=== PATIENT | female | born 1980 | race Hispanic/Latino ===

== ENCOUNTER 2019-10-16 05:52 | Observation (INO) | payer BC, OTHER ==
--- OUTSIDE RECORDS SUMMARY | 2019-10-16 05:54 | XMS REPORT ---
:1980 Author Organization eClinicalWorks Care Team Providers Name Role Phone Jerald [facility] Provider Role Unavailable Allergies, Adverse Reactions, Alerts Substance Reaction Event Type N.K.D.A. Info Not Available Non Drug Allergy Problems Problem Type Condition Code Onset Dates Condition Status Problem GERD without esophagitis K21.9 Active Problem Mixed hyperlipidemia E78.2 Active Assessment Adult BMI 26.0-26.9 kg/sq m Z68.26 Active Assessment Mixed hyperlipidemia E78.2 Active Assessment GERD without esophagitis K21.9 Active Medications Medication Code Code Instructions Start End Status Dosage System Date Date Omeprazole [facility] 70908951147 40 MG Orally Aug 08, Active 1 capsule Once a day 2018 30 minutes before morning meal Sprintec 28 [facility] 73720713633 0.25-35 MG-MCG Active 1 tablet Orally Once a day Multi Vitamin [facility] [id number] - Orally Once a Active 1 tablet day Results No Known Results Summary Purpose eClinicalWorks Submission
--- OUTSIDE RECORDS SUMMARY | 2019-10-16 05:54 | XMS REPORT ---
:1980 Author Organization eClinicalWorks Care Team Providers Name Role Phone Jerald [facility] Provider Role Unavailable Allergies, Adverse Reactions, Alerts Substance Reaction Event Type N.K.D.A. Info Not Available Non Drug Allergy Problems Problem Type Condition Code Onset Dates Condition Status Assessment Well adult on routine health check Z00.00 Active Problem GERD without esophagitis K21.9 Active Assessment GERD without esophagitis K21.9 Active Medications Medication Code Code Instructions Start End Status Dosage System Date Date Omeprazole [facility] 57171662355 40 MG Orally Aug 08, Active 1 capsule Once a day 2018 30 minutes before morning meal Sprintec 28 [facility] [id number] 0.25-35 MG-MCG Active 1 tablet Orally Once a day Multi Vitamin [facility] [id number] - Orally Once a Active 1 tablet day Results No Known Results Summary Purpose eClinicalWorks Submission
[2019-10-16 06:28] LABS: Absolute Lymphocytes (CBC) 1.5 K/uL (0.7-4.9); Basophils % 0.4 % (0-1.3); Hematocrit 40.5 % (36.0-45.0); Lymphocytes % 9.5 % (15.3-44.8); MPV 8.9 fL (7.6-11.3); RBC Red Blood Cell Count 4.37 M/uL (3.86-4.86)
[2019-10-16] MEDS ORDERED: PANTOPRAZOLE 40 MG INJ ONE (06:35)
[2019-10-16] MEDS ORDERED: MORPHINE 4 MG/ML SYR ONE (06:35)
[2019-10-16] MEDS ORDERED: ONDANSETRON 4 MG/2 ML VIAL ONE (06:35)
[2019-10-16 06:50] LABS: ALT/SGPT 19 U/L (12-78); AST/SGOT 18 U/L (15-37); Albumin 3.7 g/dL (3.4-5.0); Alkaline Phosphatase 60 U/L (45-117); BUN Blood Urea Nitrogen 9 mg/dL (7-18); Bicarbonate 23 mmol/L (21-32); Bilirubin Direct 0.1 mg/dL (0-0.2); Bilirubin Total 0.5 mg/dL (0.2-1.0); Glucose Level 122 mg/dL (74-106); Lipase 114 U/L (73-393); Potassium 3.8 mmol/L (3.5-5.1); Protein, Total 7.4 g/dL (6.4-8.2); Sodium Level 137 mmol/L (136-145); Troponin (Emerg Dept Use Only) < 0.02 ng/mL (0.0-0.045)
[2019-10-16 07:26] LABS: Urine Blood 1+ (NEG); Urine Glucose NEGATIVE (NEG); Urine Protein NEGATIVE (NEG)
--- NOTE | 2019-10-16 08:29 | RAD REPORT ---
EXAM DESCRIPTION: US - Abdomen Exam Limited - 10/16/2019 8:08 am CLINICAL HISTORY: R/O GB;Abd pain COMPARISON: No comparisons FINDINGS: Multiple mobile gallstones are identified up to 2 cm in size. At least 1 moderate-sized ga llstone remains near the neck of the gallbladder. There is no wall thickening or pericholecystic flui d. No common duct stone or biliary tree dilatation identified. IMPRESSION: Multi stone cholelithiasis. No additional findings to indicate acute cholecystitis.
--- NOTE | 2019-10-16 08:53 | EDPHYS ---
Physician Documentation [facility] Name: Fatoumata Canas Age: 38 yrs Sex: Female : 1980 Arrival Date: 10/16/2019 Time: 05:56 Bed 4 Private MD: ED Physician Toni Napoles HPI: 10/16 06:13 This 38 yrs old Female presents to ER via Ambulatory with complaints of jr8 Abdominal pain/Back pain. 06:15 The patient presents with abdominal pain in the epigastric area, in the upper abdomen. jr8 Onset: The symptoms/episode began/occurred acutely, last night. The symptoms radiate to back. Associated signs and symptoms: Pertinent positives: nausea and vomiting. The symptoms are described as stabbing. Modifying factors: The symptoms are alleviated by nothing, the symptoms are aggravated by nothing. Severity of pain: At its worst the pain was moderate in the emergency department the pain is unchanged. The patient has experienced similar episodes in the past, a few times. The patient has not recently seen a physician. Stated that her PCP has put her on omeprazole at one point but has never seen GI for problem. Stated that it normally goes away in a couple of hours but that this time it is not. 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 - Coronavirus screen:: The patient has NOT traveled to [place] in the past 14 days. Proceed with normal triage process as indicated. - Social history:: Smoking status: Patient denies any tobacco usage or history of. - Ebola Screening: : No symptoms or risks identified at this time. ROS: 06:15 Eyes: Negative for injury, pain, redness, and discharge, ENT: Negative for injury, jr8 pain, and discharge, Neck: Negative for injury, pain, and swelling, Cardiovascular: Negative for chest pain, palpitations, and edema, Respiratory: Negative for shortness of breath, cough, wheezing, and pleuritic chest pain, Back: Negative for injury and pain, MS/Extremity: Negative for injury and deformity, Skin: Negative for injury, rash, and discoloration, Neuro: Negative for headache, weakness, numbness, tingling, and seizure. 06:15 Abdomen/GI: Positive for abdominal pain, nausea and vomiting, Negative for diarrhea, constipation, abdominal cramps, abdominal distension. Exam: 06:15 Eyes: Pupils equal round and reactive to light, extra-ocular motions intact. Lids and jr8 lashes normal. Conjunctiva and sclera are non-icteric and not injected. Cornea within normal limits. Periorbital areas with no swelling, redness, or edema. ENT: Nares patent. No nasal discharge, no septal abnormalities noted. Tympanic membranes are normal and external auditory canals are clear. Oropharynx with no redness, swelling, or masses, exudates, or evidence of obstruction, uvula midline. Mucous membranes moist. Neck: Trachea midline, no thyromegaly or masses palpated, and no cervical lymphadenopathy. Supple, full range of motion without nuchal rigidity, or vertebral point tenderness. No Meningismus. Chest/axilla: Normal chest wall appearance and motion. Nontender with no deformity. No lesions are appreciated. Cardiovascular: Regular rate and rhythm with a normal S1 and S2. No gallops, murmurs, or rubs. Normal PMI, no JVD. No pulse deficits. Respiratory: Lungs have equal breath sounds bilaterally, clear to auscultation and percussion. No rales, rhonchi or wheezes noted. No increased work of breathing, no retractions or nasal flaring. Back: No spinal tenderness. No costovertebral tenderness. Full range of motion. Skin: Warm, dry with normal turgor. Normal color with no rashes, no lesions, and no evidence of cellulitis. MS/ Extremity: Pulses equal, no cyanosis. Neurovascular intact. Full, normal range of motion. Neuro: Awake and alert, GCS 15, oriented to person, place, time, and situation. Cranial nerves II-XII grossly intact. Motor strength 5/5 in all extremities. Sensory grossly intact. Cerebellar exam normal. Normal gait. 06:15 Abdomen/GI: Inspection: abdomen appears normal, Bowel sounds: active, all quadrants, Palpation: soft, in all quadrants, moderate abdominal tenderness, in the epigastric area and right upper quadrant, mass, is not appreciated, rebound tenderness, is not appreciated, voluntary guarding, is not appreciated, involuntary guarding, is not appreciated, no appreciated organomegaly, Indicators: McBurney's point is not tender, Garcia's sign is negative, Rovsing's sign is negative, Liver: tenderness, is not appreciated. 06:50 ECG was reviewed by the Attending Physician. jr8 Vital Signs: 06:09 BP 130 / 85; Pulse 77; Resp 24 S; Temp 98.2(O); Pulse Ox 100% on R/A; Weight 68.04 kg bb (R); Height 5 ft. 4 in. (162.56 cm) (R); Pain 10/10; 07:12 BP 123 / 68; Pulse 66; Resp 14; Temp 98.; Pulse Ox 99% on R/A; Pain 2/10; ch 08:07 BP 118 / 80; Pulse 71; Resp 18; Pulse Ox 100% on R/A; Pain 0/10; em 09:08 BP 119 / 77; Pulse 76; Resp 16; Temp 98.1(O); Pulse Ox 99% on R/A; Pain 2/10; ch 09:44 BP 117 / 72; Pulse 68; Resp 14; Temp 98.1; Pulse Ox 100% on R/A; Pain 2/10; ch 06:09 Body Mass Index 25.75 (68.04 kg, 162.56 cm) MDM: 06:02 Patient medically screened. jr8 06:18 Differential diagnosis: cholecystitis, Cholelithiasis, diverticulitis, gastritis, jr8 gastroesophageal reflux disease, Hepatitis, Irritable bowel syndrome, myocardia ischemia or infarction, non-specific abd pain, pancreatitis, Peptic Ulcer Disease, Perf. Duodenal Ulcer, Perf. Gastric Ulcer. 08:40 Data reviewed: vital signs, nurses notes, lab test result(s), EKG, radiologic studies, jr8 plain films, ultrasound, and as a result, I will admit patient. Data interpreted: Pulse oximetry: on room air is 100 %. Interpretation: normal. Counseling: I had a detailed discussion with the patient and/or guardian regarding: the historical points, exam findings, and any diagnostic results supporting the discharge/admit diagnosis, lab results, radiology results, the need for further work-up and treatment in the hospital, to return to the emergency department if symptoms worsen or persist or if there are any questions or concerns that arise at home. Response to treatment: the patient's symptoms have markedly improved after treatment. 08:46 ED course: Patient doing better. No pericholecystic fluid or GB wall inflammation [facility] noted. NO CBD dilation. Called Dr. Luna. Wants to do surgery today instead of f/u in outpatient office. Will admit to [facility] . 10/16 06:07 Order name: Basic Metabolic Panel [facility] 10/16 06:07 Order name: CBC with Diff [facility] 10/16 06:07 Order name: Creatinine for Radiology [facility] 10/16 06:07 Order name: Hepatic Function [facility] 10/16 06:07 Order name: Lipase [facility] 10/16 06:07 Order name: Troponin (emerg Dept Use Only) [facility] 10/16 06:34 Order name: CBC with Automated Diff; Complete Time: 09:41 EDMS 10/16 06:45 Order name: Creatinine (Radiology Only); Complete Time: 06:46 EDMS 10/16 06:51 Order name: Basic Metabolic Panel; Complete Time: 06:51 EDMS 10/16 06:51 Order name: Liver (Hepatic) Function; Complete Time: 06:51 EDMS 10/16 06:51 Order name: Troponin (Emerg Dept Use Only); Complete Time: 06:51 EDMS 10/16 06:51 Order name: Lipase; Complete Time: 06:51 EDMS 10/16 06:56 Order name: Urine Dipstick--Ancillary (enter results) 10/16 06:56 Order name: Urine --Ancillary (enter results) 10/16 06:07 Order name: IV Saline Lock; Complete Time: 06:19 [facility] 10/16 06:07 Order name: Labs collected and sent; Complete Time: 06:19 [facility] 10/16 06:07 Order name: Urine Test (obtain specimen); Complete Time: 07:12 [facility] 10/16 06:07 Order name: Urine Dipstick-Ancillary (obtain specimen); Complete Time: 07:12 [facility] 10/16 06:07 Order name: XRAY Chest (1 view) [facility] 10/16 06:12 Order name: US Abdomen Limited [facility] 10/16 07:26 Order name: Urine --Ancillary; Complete Time: 07:48 EDMS 10/16 07:26 Order name: Urine Dipstick-Ancillary; Complete Time: 07:48 EDMS 10/16 08:30 Order name: US; Complete Time: 08:42 EDMS 10/16 09:13 Order name: RAD; Complete Time: 09:13 EDMS 16 09:32 Order name: CBC Smear Scan; Complete Time: 09:41 EDMS 16 06:07 Order name: EKG - Nurse/Tech; Complete Time: 06:19 jr8 EC:50 Rate is 76 beats/min. Rhythm is regular, Normal Sinus Rhythm. QRS [place] is Normal. AR jr8 interval is normal at 132 msec. QRS interval is normal at 82 msec. QT interval is normal at 463 msec. No Q waves. T waves are Normal. No ST changes noted. Clinical impression: Normal ECG and No evidence of ischemia. Interpreted by me. Reviewed by me. Administered Medications: 03:34 Drug: ProTONIX 40 mg Route: IVP; Site: right antecubital; jb4 07:11 Follow up: Response: No adverse reaction; Marked relief of symptoms ch 06:30 Drug: Zofran 4 mg Route: IVP; Site: right antecubital; jb4 07:11 Follow up: Response: No adverse reaction; Marked relief of symptoms ch 06:36 Drug: morphine 4 mg {Note: Rass score 0.} Route: IVP; Site: right antecubital; jb4 07:11 Follow up: Response: No adverse reaction; Marked relief of symptoms ch 09:07 Drug: Mefoxin 1 grams {Note: per pharmacy, mefoxin is IV push slow over 5 min. ch administered per pharmacy protocol over 5 min, to R aC. pt tolerated well.} Route: IVPB; Infused Over: 30 mins; Site: right antecubital; 09:15 Follow up: IV Status: Completed infusion; IV Intake: 10ml ch 09:07 Drug: Flagyl 500 mg Volume: 100 ml; Route: IVPB; Rate: 200 ml/hr; Infused Over: 30 ch mins; Site: right antecubital; 09:45 Follow up: IV Status: Completed infusion; IV Intake: 100ml ch Disposition: 10/17 07:48 Co-signature as Attending Physician, Toni Napoles MD I agree with the assessment and kdr plan of care. Disposition: 10/16/19 08:51 Hospitalization ordered by Yosef Luna for Observation. Preliminary diagnosis is Cholelithiasis. - Bed requested for Telemetry/MedSurg (observation). - Status is Observation. ch - Condition is Stable. - Problem is new. - Symptoms have improved. Signatures: Dispatcher [employer] EDMS Katherine Carr, RN RN ch Toni Napoles MD MD [facility] Sadaf Bryant RN RN bb Jorge Yung PA PA jr8 Yosef Milligan RN RN jb4 Lisha Lozada Corrections: (The following items were deleted from the chart) 10/16 08:50 08:40 Data reviewed: vital signs, nurses notes, lab test result(s), EKG, radiologic jr8 studies, plain films, ultrasound, and as a result, I will discharge patient, 8 08:40 Counseling: I had a detailed discussion with the patient and/or guardian jr8 regarding: the historical points, exam findings, and any diagnostic results supporting the discharge/admit diagnosis, lab results, radiology results, the need for outpatient follow up, a general surgeon, to return to the emergency department if symptoms worsen or persist or if there are any questions or concerns that arise at home, 8 08:46 ED course: Patient doing better. No pericholecystic fluid or GB wall inflammation jr8 noted. NO CBD dilation. Will send home to f/u with Dr. Luna early this week . jr8 08:51 Hospitalization Ordered by Yosef Luna MD for Observation. Preliminary eb diagnosis is Cholelithiasis. Bed requested for Telemetry/MedSurg (observation). Status is Observation. Condition is Stable. Problem is new. Symptoms have improved. jr8 10:13 09:28 10/16/2019 08:51 Hospitalization Ordered by Yosef Luna MD for Observation. ch Preliminary diagnosis is Cholelithiasis. Bed requested for Telemetry/MedSurg (observation). Status is Observation. Condition is Stable. Problem is new. Symptoms have improved. eb
--- NOTE | 2019-10-16 08:53 | ER ---
Nurse's Notes [facility] Name: Fatoumata Canas Age: 38 yrs Sex: Female : 1980 Arrival Date: 10/16/2019 Time: 05:56 Bed 4 Private MD: Diagnosis: Cholelithiasis Presentation: 10/16 06:06 Presenting complaint: Patient states: she started having back pain around 2300 which bb goes to her epigastric area the pain got so bad that she vomited, she has had this pain in the past and was prescribed omeprazole and told to take it as needed she took one last night but it is not helping. Transition of care: patient was not received from another setting of care. Onset of symptoms was October 15, 2019. Risk Assessment: Do you want to hurt yourself or someone else? Patient reports no desire to harm self or others. Initial Sepsis Screen: Does the patient meet any 2 criteria? No. Patient's initial sepsis screen is negative. Does the patient have a suspected source of infection? No. Patient's initial sepsis screen is negative. Care prior to arrival: None. 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 - Coronavirus screen:: The patient has NOT traveled to [place] in the past 14 days. Proceed with normal triage process as indicated. - Social history:: Smoking status: Patient denies any tobacco usage or history of. - Ebola Screening: : No symptoms or risks identified at this time. Screenin:07 Abuse screen: Denies threats or abuse. Nutritional screening: No deficits noted. jb4 Tuberculosis screening: No symptoms or risk factors identified. Fall Risk None identified. Assessment: 06:07 General: Appears in no apparent distress. uncomfortable, Behavior is calm, cooperative, jb4 appropriate for age. Pain: Complains of pain in thoracic area Pain radiates to epigastric area Pain currently is 9 out of 10 on a pain scale. Quality of pain is described as strong and constant Is continuous. Neuro: Level of Consciousness is awake, alert, obeys commands, Oriented to person, place, time, situation. Cardiovascular: Patient's skin is warm and dry. Respiratory: Reports shortness of breath at rest on exertion Airway is patent Respiratory effort is even, unlabored, Respiratory pattern is regular, symmetrical. GI: Reports vomiting once \T\ 0400. : No signs and/or symptoms were reported regarding the genitourinary system. EENT: No signs and/or symptoms were reported regarding the EENT system. Derm: Skin is intact, Skin is pink, warm \T\ dry. Musculoskeletal: Circulation, motion, and sensation intact. Range of motion: intact in all extremities. 07:01 Reassessment: Patient appears in no apparent distress at this time. 08:06 Reassessment: Patient appears in no apparent distress at this time. US completed. awaiting results now. no changes. 08:08 Reassessment: Patient appears in no apparent distress at this time. Patient and/or em family updated on plan of care and expected duration. Pain level reassessed. Patient is alert, oriented x 3, equal unlabored respirations, skin warm/dry/pink. Patient denies pain at this time. Patient states symptoms have improved. 08:58 Reassessment: Patient appears in no apparent distress at this time. No changes from previously documented assessment. Patient and/or family updated on plan of care and expected duration. Pain level reassessed. Patient is alert, oriented x 3, equal unlabored respirations, skin warm/dry/pink. Jorge speakes with Dr. Gutierrez about pt care. pt updated on plan of care and admission Patient states feeling better. 09:08 Reassessment: Patient appears in no apparent distress at this time. Patient and/or ch family updated on plan of care and expected duration. Pain level reassessed. Patient is alert, oriented x 3, equal unlabored respirations, skin warm/dry/pink. 09:43 Reassessment: attempted to call report, will call again in 10-15 min to allow the nurse ch time to prepare. 10:01 Reassessment: Patient appears in no apparent distress at this time. report given to Behzad. Vital Signs: 06:09 BP 130 / 85; Pulse 77; Resp 24 S; Temp 98.2(O); Pulse Ox 100% on R/A; Weight 68.04 kg bb (R); Height 5 ft. 4 in. (162.56 cm) (R); Pain 10/10; 07:12 BP 123 / 68; Pulse 66; Resp 14; Temp 98.; Pulse Ox 99% on R/A; Pain 2/10; ch 08:07 BP 118 / 80; Pulse 71; Resp 18; Pulse Ox 100% on R/A; Pain 0/10; em 09:08 BP 119 / 77; Pulse 76; Resp 16; Temp 98.1(O); Pulse Ox 99% on R/A; Pain 2/10; ch 09:44 BP 117 / 72; Pulse 68; Resp 14; Temp 98.1; Pulse Ox 100% on R/A; Pain 2/10; ch 06:09 Body Mass Index 25.75 (68.04 kg, 162.56 cm) ED Course: 05:56 Patient arrived in ED. ag3 06:02 Jorge Yung PA is PHCP. jr8 06:02 Toni Napoles MD is Attending Physician. jr8 06:06 Yosef Milligan, RN is Primary Nurse. jb4 06:07 Patient has correct armband on for positive identification. Bed in low position. Call jb4 light in reach. Side rails up X 1. Pulse ox on. NIBP on. 06:08 Triage completed. bb 06:09 Arm band placed on Patient placed in an exam room, on a stretcher, on pulse oximetry. bb 06:19 Basic Metabolic Panel Sent. jb4 06:19 CBC with Diff Sent. jb4 06:19 Creatinine for Radiology Sent. jb4 06:19 Hepatic Function Sent. jb4 06:19 Lipase Sent. jb4 06:26 EKG done, by ED staff, reviewed by Toni Napoles MD. ds4 06:28 Troponin (emerg Dept Use Only) Sent. ds4 07:12 XRAY Chest (1 view) Sent. ch 07:12 Urine --Ancillary (enter results) Sent. ch 07:12 Urine Dipstick--Ancillary (enter results) Sent. ch 07:40 Ultrasound completed. Patient tolerated well. Notified ADJUNCT TEACHER/PA . sg3 08:51 Yosef Luna MD is Hospitalizing Provider. jr8 08:54 Primary Nurse role handed off by Yosef Milligan, RN 08:54 Katherine Carr, RN is Primary Nurse. 11:36 No provider procedures requiring assistance completed. Patient admitted, IV remains in place. Administered Medications: 03:34 Drug: ProTONIX 40 mg Route: IVP; Site: right antecubital; jb4 07:11 Follow up: Response: No adverse reaction; Marked relief of symptoms ch 06:30 Drug: Zofran 4 mg Route: IVP; Site: right antecubital; jb4 07:11 Follow up: Response: No adverse reaction; Marked relief of symptoms ch 06:36 Drug: morphine 4 mg {Note: Rass score 0.} Route: IVP; Site: right antecubital; jb4 07:11 Follow up: Response: No adverse reaction; Marked relief of symptoms 09:07 Drug: Mefoxin 1 grams {Note: per pharmacy, mefoxin is IV push slow over 5 min. ch administered per pharmacy protocol over 5 min, to R aC. pt tolerated well.} Route: IVPB; Infused Over: 30 mins; Site: right antecubital; 09:15 Follow up: IV Status: Completed infusion; IV Intake: 10ml 09:07 Drug: Flagyl 500 mg Volume: 100 ml; Route: IVPB; Rate: 200 ml/hr; Infused Over: 30 ch mins; Site: right antecubital; 09:45 Follow up: IV Status: Completed infusion; IV Intake: 100ml ch Intake: 09:15 IV: 10ml; Total: 10ml. 09:45 IV: 100ml; Total: 110ml. Outcome: 08:51 Decision to Hospitalize by Provider. jose 10:10 Admitted to Med/surg accompanied by tech, via wheelchair, with chart, Report called to Behzad 10:10 Condition: stable 10:10 Instructed on the need for admit. 10:13 Patient left the ED. Signatures: Katherine Carr, RN RN Franklin Dolan RN RN em Ballard, Brenda, RN RN Jorge Sullivan PA PA jr8 Pavel Salvador ds4 Yosef Milligan, RN RN jb4 Diamond Saleem 3 Sheryl Felix 3
[2019-10-16] MEDS ORDERED: METRONIDAZOLE 500mg IVPB 500 MG/100 ML BAG IV ONE (08:58)
[2019-10-16] MEDS ORDERED: CEFOXITIN/SWI 1gm 1 GM/10 ML SYR ONE (08:58)
--- NOTE | 2019-10-16 09:10 | RAD REPORT ---
EXAM DESCRIPTION: RAD - Chest Single View - 10/16/2019 7:24 am CLINICAL HISTORY: CHEST PAIN COMPARISON: No comparisons TECHNIQUE: AP portable chest image was obtained 10/16/2019 7:24 am . FINDINGS: Lungs are clear. Heart and vasculature are normal. No measurable pleural effusion and no p neumothorax. No acute bony abnormality seen. No acute aortic findings suspected. IMPRESSION: No acute cardiopulmonary process.
[2019-10-16 09:32] LABS: Blood Morphology Comment NOT SEEN (NOT SEEN); Platelet Estimate ADEQ; White Blood Cell Scan OK
[2019-10-16] MEDS ORDERED: ONDANSETRON 4 MG/2 ML VIAL IV PRN (10:19)
[2019-10-16] MEDS ORDERED: MORPHINE 4 MG/ML SYR IV PRN ×2 (10:19→16:33)
[2019-10-16 10:21] VITALS: BMI 26.6
[2019-10-16] MEDS: D5 0.45 NS 1,000 ML IV SCH ×2 (10:55→18:19)
[2019-10-16] MEDS ORDERED: CEFOXITIN/SWI 1gm 1 GM/10 ML SYR IVP SCH (12:00)
[2019-10-16] MEDS ORDERED: METRONIDAZOLE 500mg IVPB 500 MG/100 ML BAG IV SCH ×2 (13:00→18:00)
[2019-10-16] MEDS ORDERED: CEFOXITIN SODIUM 1 GM/VIAL IVPB SCH (13:00)
[2019-10-16] MEDS ORDERED: Ringers Lactate 1,000 ML IV ONE (14:23)
--- NOTE | 2019-10-16 14:53 | P.HP ---
Date of Service: 10/16/19 PC: This 38-year-old female presented emergency room with severe upper abdominal pain for diagnosis and treatment. HPC: Patient has been having intermittent bouts of abdominal pain over the last number of years. Recently have intensified both in quantity and quality. Now describes a last side as being severe, going straight through to her back. She did hardly stand it. PMH: PSHx: Negative SOC: No known allergies SYS REVIEW: No cough, wheeze, shortness of breath. No chest pain or palpitations. No urinary complaints O/E awake alert vital signs are stable HEENT: Not jaundiced Chest: Air entry equal bilaterally ABD: Mild epigastric tenderness LOCO: Intact DATA: Has documented gallstones on ultrasound IMPRESSION: Cholecystitis with cholelithiasis, biliary colic PLAN: I will take her to the operating room for laparoscopic possible open cholecystectomy with intraoperative cholangiogram. The risks of this procedure have been discussed. The possibility of bleeding, infection, injury to bile ducts blood vessels intestines and possible need for further surgeries and procedures was discussed. She understands and wants us to proceed.
[2019-10-16] MEDS ORDERED: SUCCINYLCHOLINE 20 MG/ML (10 ML) IV ONE (15:13)
[2019-10-16] MEDS ORDERED: ROCURONIUM 50 MG/5 ML VIAL IV ONE (15:17)
[2019-10-16] MEDS ORDERED: FENTANYL CITR 250 MCG/5 ML ONE (15:17)
[2019-10-16] MEDS ORDERED: propofoL 200 MG/20 ML VIAL IV ONE (15:17)
[2019-10-16] MEDS ORDERED: MIDAZOLAM HCL 2 MG/2 ML INJ ONE (15:17)
[2019-10-16] MEDS ORDERED: NEOSTIGMINE 1 MG/ML -5 ML ONE (16:26)
[2019-10-16] MEDS ORDERED: GLYCOPYRROLATE 0.2 MG/ML SYR ONE (16:27)
--- NOTE | 2019-10-16 16:34 | P.OP ---
Preoperative diagnosis: Cholecystitis with cholelithiasis Postoperative diagnosis: Acute cholecystitis with cholelithiasis Primary procedure: Laparoscopic cholecystectomy Secondary procedure: Cholangiogram Anesthesia: General Estimated blood loss: Less than 10 cc Specimen: 1 gallbladder and contents Operative Technique: The patient brought the operating room and placed supine on the table. After the induction of adequate general endotracheal anesthesia, the area of the abdomen was prepped with a DuraPrep solution, and she was draped in usual aseptic manner. A subumbilical incision was made. This brought down through the skin and subcutaneous tissue. The Visiport was used to enter the peritoneal cavity and created pneumoperitoneum to approximately 12 mm of mercury. Under direct vision a 5 mm trocar was placed in the upper midline, and 2 5s on the right lateral side of the abdominal wall. The patient is now placed in reverse Trendelenburg. She was then rolled to the left. We could visualize the right upper quadrant. We could see a markedly this stained edematous gallbladder. It was necessary to aspirate its contents we could place a grasper on the gallbladder itself. This having mean done we were able to place another by Shaun's pouch. We could see the artery which was anterior on this patient's case. This was dissected out cleanly clipped and divided in usual way. The cystic duct was then identified. There was a stone noted be in the actual cystic duct dissected distal to its takeoff from the gallbladder. The stone was milked back into the gallbladder. A clip was now placed between the gallbladder and the cystic duct. An opening was made into the cystic duct through which we obtained a cholangiogram that showed good flow contrast into the duodenum. The tower was tilted off so the appearance is somewhat abnormal but we could identify all of our extrahepatic biliary structures and ensure we do the common duct was intact. At this point the catheter was removed. Clips were placed on the distal portion of the cystic duct. The cystic duct was now fully transected. The gallbladder was dissected free from the liver bed. It was interesting to note amount of edema between the gallbladder and the liver itself. This pus was then placed into an Endo-Catch and brought out through the umbilical trocar site. Inspecting the abdomen we could see we had adequate hemostasis. She was returned to the neutral position on the OR table. Under direct vision the 10 mm trocar site at the emboli kiss was approximated using an absorbable suture. At this point the pneumoperitoneum was collapsed, the trocars removed, the suture tied. Tiago were then applied to the skin. At the end of the procedure she was stable when sent to the recovery room in. Needle sponge instrument count were correct. No drains were placed. Complications: None Transferred to: Recovery Room Condition: Good
[2019-10-16] MEDS: MORPHINE 4 MG/ML SYR ONE ×2 (16:44→16:49)
[2019-10-16] MEDS ORDERED: KETOROLAC 30 MG/ML INJ ONE (16:46)
--- NOTE | 2019-10-16 17:11 | RAD REPORT ---
EXAM DESCRIPTION: RADCholangiogram Oper-Xray Or10/16/2019 4:45 pm CLINICAL HISTORY: Abdominal pain FINDINGS: The examination was performed by Dr. Luna. The cystic duct was cannulated and contrast administered. Contrast flowed into the duodenum. The biliary tree is normal caliber without a filling defect seen. Fluoroscopy time 0.5 minutes. Ten fluoroscopic spot images obtained
[2019-10-16] MEDS: CEFOXITIN/SWI 1gm 1 GM/10 ML SYR IVP SCH (18:18)
[2019-10-17] MEDS: CEFOXITIN/SWI 1gm 1 GM/10 ML SYR IVP SCH ×3 (00:20→10:55)
[2019-10-17] MEDS: HYDROCODONE/APAP 7.5/325 MG TAB PO PRN ×2 (04:06→10:55)
[2019-10-17] MEDS: D5 0.45 NS 1,000 ML IV SCH ×2 (05:13→10:19)
[2019-10-17 08:16] VITALS: O2SAT 99
--- NOTE | 2019-10-17 11:25 | EKG ---
Test Date: 2019-10-16 Test Time: 06:18:41 Lumber Buyer: MOLLY MEASUREMENT RESULTS: Intervals: Rate: 76 OH: 132 QRSD: 82 QT: 412 QTc: 463 [place]: P: 67 OH: 132 QRS: 74 T: 50 INTERPRETIVE STATEMENTS: Normal sinus rhythm Normal ECG No previous ECG available for comparison Electronically Signed On 10-17-19 11:25:16 MOVIE EDITOR by Tereso Brian
[2019-10-17 12:05] VITALS: BP 107/70; TEMP 97.7
--- NOTE | 2019-10-17 14:04 | P.DS ---
Admission Date: 10/16/19 Discharge Date: 10/17/19 Disposition: ROUTINE DISCHARGE Discharge Condition: GOOD Reason for Admission: Abdominal pain Procedures: Laparoscopic cholecystectomy with cholangiogram Brief History of Present Illness: Patient presents emergency room with severe abdominal pain for diagnosis and treatment. Hospital Course: The patient was seen in emergency room for severe right upper quadrant epigastric pain. Ultrasound demonstrated the patient had cholelithiasis. She was brought to the operating room for laparoscopic cholecystectomy with a normal cholangiogram. She was admitted postoperatively for observation pain control. This morning she is up ambulating, tolerating a diet, and is anxious to go home. On discharge she was advised about diet, showering, dressing changes, pain medication, and ambulating at home. Should she have any questions or problems, she will go to the emergency room, or contact me. Otherwise she has a follow-up appointment next Thursday. Vital Signs/Physical Exam: Temp Pulse Resp BP Pulse Ox 97.7 F 66 15 107/70 100 10/17/19 12:00 10/17/19 12:00 10/17/19 12:00 10/17/19 12:10/17/19 12:00 Laboratory Data at Discharge: WBC 16.3 K/uL (4.3-10.9) H 10/16/19 06:15 Hgb 13.6 g/dL (12.0-15.0) 10/16/19 06:15 Hct 40.5 % (36.0-45.0) 10/16/19 06:15 Plt Count 242 K/uL (152-406) 10/16/19 06:15 Sodium 137 mmol/L (136-145) 10/16/19 06:15 Potassium 3.8 mmol/L (3.5-5.1) 10/16/19 06:15 BUN 9 mg/dL (7-18) 10/16/19 06:15 Creatinine 0.70 mg/dL (0.55-1.3) 10/16/19 06:15 Glucose 122 mg/dL (74-106) H 10/16/19 06:15 Total Bilirubin 0.5 mg/dL (0.2-1.0) 10/16/19 06:15 AST 18 U/L (15-37) 10/16/19 06:15 ALT 19 U/L (12-78) 10/16/19 06:15 Alkaline Phosphatase 60 U/L (45-117) 10/16/19 06:15 Lipase 114 U/L (73-393) 10/16/19 06:15 Home Medications: NK [No Home Meds] 10/16/19
== END 2019-10-17 15:30 | disposition home or self-care (01) ==
LOC: ER 05:52 → ERHOLD 09:19 → 4TH 10:06
PROVIDERS: ADMIT Surgery; ATTEND Surgery
PROC: BF00YZZ Plain Radiography of Bile Ducts using Other Contrast (ICD-10-PCS; 2019-10-16)
PROC: 0FT44ZZ Resection of Gallbladder, Percutaneous Endoscopic Approach (ICD-10-PCS; principal; 2019-10-16 16:00)
DX: K80.00 Calculus of gallbladder with acute cholecystitis without obstruction (principal)
CPT/HCPCS: 96365; 93005; 85025; 80048; 36415; 81025; 80076; 88304; 81003; 84484; 83690; 74300; 71045; 76705; 96375; 99285; 47563; J2704; J0330; C9113; J2250; J3010; J2710; J7799 ×3; J7120; J2405 ×2; G0378 ×3